=== PATIENT | male | born 1980 | race Caucasian/White ===

== ENCOUNTER 2022-02-16 01:13 | Emergency (ER) | payer MEDICAID ==
[2022-02-16 01:53] LABS: ESTIMATED GFR 59 mL/min (>60)
== END 2022-02-16 02:30 | disposition home or self-care (01) ==
LOC: FB.ED 01:13
DX: H53.8 Other visual disturbances (principal); Z88.0 Allergy status to penicillin
CPT/HCPCS: 36415; 70450; 80048; 99284